=== PATIENT | female | born 1985 | race Caucasian/White ===

== ENCOUNTER → 2017-10-03 | Outpatient (CLI) | payer OTHER | LOC: BRMIMAGING 13:11 | PROVIDERS: ATTEND Internal Medicine Rheumatology | DX: R00.2 Palpitations (principal); R01.0 Benign and innocent cardiac murmurs | CPT/HCPCS: 71020-PO ==

== ENCOUNTER → 2018-02-08 | Outpatient (CLI) | payer OTHER | LOC: BRMIMAGING 08:32 | PROVIDERS: ATTEND Physician Assistant | DX: K76.0 Fatty (change of) liver, not elsewhere classified (principal) | CPT/HCPCS: 76705-PO ==